=== PATIENT | female | born 1985 | race African-American/Black ===

== ENCOUNTER 2021-08-05 03:31 | Emergency (ER) | payer MEDICAID, OTHER ==
[~2021-08-05] VITALS: Ht 170.2 cm; Wt 73.0 kg
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
--- NOTE | 2021-08-05 04:50 | NUR ---
PT TO CT.
--- NOTE | 2021-08-05 04:59 | NUR ---
BACK FROM CT.
[2021-08-05] MEDS ORDERED: IBUP-1955 PO (05:06)
[2021-08-05 06:01] VITALS: BP 133/70
--- NOTE | 2021-08-05 06:01 | NUR ---
Patient discharged to home in stable condition. Written and verbal after care instructions given. Patient verbalizes understanding of instruction.
== END 2021-08-05 07:12 | disposition home or self-care (01) ==
LOC: ER 03:33
DX: S02.2XXA Fracture of nasal bones, initial encounter for closed fracture (principal); S05.11XA Contusion of eyeball and orbital tissues, right eye, initial encounter; R51.9 Headache, unspecified; F10.10 Alcohol abuse, uncomplicated; Y90.9 Presence of alcohol in blood, level not specified; Z79.899 Other long term (current) drug therapy; Y04.8XXA Assault by other bodily force, initial encounter; Y93.89 Activity, other specified; Y92.89 Other specified places as the place of occurrence of the external cause; Y99.8 Other external cause status
CPT/HCPCS: 70450-TC; 70486-TC; 72125-TC